=== PATIENT | female | born 1965 | race Caucasian/White ===

== ENCOUNTER 2019-02-02 10:57 | Day surgery (SDC) | payer OTHER ==
[~2019-02-02] VITALS: Ht 172.7 cm; Wt 94.8 kg
[~2019-02-02 10:57] MED LIST: ALBU90OI INH; AMLO5; CARV25 PO; HYDCHL25; HYOS.125; IRBE150 PO; NEBI10
--- NOTE | 2019-02-02 11:47 | NUR ---
Ambulatory in Day Surgery History, Chart, Medications and Allergies reviewed before start of procedure. Lungs clear T/O to Auscultation. Patient confirms NPO status and agrees with scheduled surgery. Patient States Post-Procedure ride home has been arranged.
--- NOTE | 2019-02-02 15:22 | NUR ---
PT AMBULATED TO [facility] WITH 1 PERSON STANDBY ASSIST. INCISION ABOVE THE UMBILICUS WITH SMALL AMOUNT OF SANGINOUS DRAINAGE-STERI STRIPS REMAIN INTACT-4X4 GUAZE AND MEFIX TAPE PLACED. PT ABLE TO VOID A SMALL AMOUNT OF URINE, BUT REPORTS THAT SHE FEELS IF SHE IS NOT COMPLETELY EMPTY. MODERATE AMOUNT OF SANGUINOUS VAGINAL DRAINAGE NOTED-ASSISTED PT WITH PARTIAL BATH AND WILFRIDO CARE-MADONNA PANTIES AND WILFRIDO PAD PLACED. PT REPORTS 6/10 RIGHT LOWER QUADRANT PAIN. PT NEEDED MODERATE ASSIST GETTING BACK TO BED. MED WITH FENTANYL 25 MCG IVP X 1 FOR PAIN. SATS INTO 89-90% RANGE AT TIMES-C&DB ENCOURAGED.
--- NOTE | 2019-02-02 15:55 | NUR ---
DR. LIMON CONTACTED.UPDATED TO CURRENT VS AND STATUS. MD AWARE OF PT RIGHT LOWER QUADRANT PAIN. MD AWARE THAT PT MED WITH BOTH PERCOCET AND FENTANYL-SEE EMAR. MD UPDATED TO CURRENT VS AND MADE AWARE THAT SATS 88-91% AT TIMES. EXTENDED RECOVERY REQUESTED BY DR. LIMON-SEE WRITTEN ORDERS. NURSING FINAL ASSEMBLY AND PACKING SUPERVISOR NOTIFIED.
--- NOTE | 2019-02-02 16:40 | NUR ---
REPORTS PHONED TO JUNG COTO. PT TRANSFERED TO ROOM 208 VIA [facility].
--- NOTE | 2019-02-02 18:34 | NUR ---
PT HAS BEEN STABLE POST OP EXTENDED RECOVERY. PT UP WITH MIN ASSIST TO BATHROOM. PAIN WELL CONTROLLED WITH PRN MEDS. PT DRINKING FLUIDS WELL, HAS VOIDED X2 POST OP. DARREL REG DIET. SATS STABLE ON RA. BP SLIGHTLY HYPERTENSIVE, WILL CONTINUE HOME MEDS ORDERED. STERI STRIPS CDI. NO FLATUS YET. MIN BLEEDING. USES CALL LIGHT APPROPRIATELY NEEDED.
[2019-02-02] MEDS ORDERED: Percocet 5-3251 EACH PO (20:48)
[2019-02-02] MEDS ORDERED: IBUP800 PO (20:49)
--- NOTE | 2019-02-02 21:30 | NUR ---
PT DISCHARGED HOME, SELF CARE. DISCHARGE PACKET GIVEN WITH RX. 18G PIV REMOVED FROM RIGHT WRIST. ALL BELONGINGS GATHERED AND TAKEN WITH HER. TAKEN DOWNSTAIRS BY PER WHEELCHAIR TO PERSONAL VEHICHLE.
== END 2019-02-02 21:30 | disposition home or self-care (01) ==
LOC: ORSCMMR 10:57 → ORD 12:00 → ORSCMMR 12:00 → SURS 16:48 → ORSCMMR 21:30
PROVIDERS: Obstetrics & Gynecology
PROC: 0UT14ZZ Resection of Left Ovary, Percutaneous Endoscopic Approach (ICD-10-PCS; principal; 2019-02-02 12:00)
PROC: 0UT64ZZ Resection of Left Fallopian Tube, Percutaneous Endoscopic Approach (ICD-10-PCS; principal; 2019-02-02 12:00)
DX: D27.1 Benign neoplasm of left ovary (principal); I10 Essential (primary) hypertension; J45.909 Unspecified asthma, uncomplicated; D68.51 Activated protein C resistance; Z79.899 Other long term (current) drug therapy
CPT/HCPCS: 88305; J1100; J1644; J1885; J2250; J2405; J2710; J3010; J7120

== ENCOUNTER → 2020-12-19 | Outpatient (CLI) | payer OTHER ==
[~2020-12-19] MED LIST changes: +IBUP800 PO; +Percocet 5-3251 EACH PO
[2020-12-21 17:10] LABS: HPV 16 Negative (Negative); HPV 18 Negative (Negative); HPV OTHER HR TYPES Negative (Negative)
== END | disposition home or self-care (01) ==
LOC: LAB SHORT 15:55 → PLD 15:55
PROVIDERS: Advanced Practice Midwife
DX: Z01.419 Encounter for gynecological examination (general) (routine) without abnormal findings (principal)
CPT/HCPCS: 87624; G0123

== ENCOUNTER → 2021-09-07 | Outpatient (CLI) | payer OTHER | LOC: LAB 07:46 → LAB SHORT 07:46 | DX: N95.0 Postmenopausal bleeding (principal) | CPT/HCPCS: 88305 ==

== ENCOUNTER → 2021-11-17 | Outpatient (CLI) | payer OTHER | END | disposition home or self-care (01) | LOC: LAB SHORT 13:31 | DX: N95.0 Postmenopausal bleeding (principal) | CPT/HCPCS: 88305 ==